=== PATIENT | female | born 1955 | race Caucasian/White ===

== ENCOUNTER 2016-11-06 09:01 | Day surgery (SDC) | payer OTHER ==
[~2016-11-06] VITALS: Ht 157.5 cm; Wt 85.6 kg
[~2016-11-06 09:01] MED LIST: BEN25 PO; MED4DP PO
[2016-11-06 09:37] VITALS: Ht 157.5 cm; Wt 85.6 kg
[2016-11-06] MEDS ORDERED: PROPOFOL 20 ML ONE (09:42)
[2016-11-06] MEDS ORDERED: THYROID (09:45)
[2016-11-06] MEDS ORDERED: OMEP40CA6 PO (09:45)
[2016-11-06 09:49] VITALS: BP 165/96; PULSE 69; RESP 14
--- NOTE | 2016-11-07 00:40 | GILP ---
DATE OF PROCEDURE: NAME OF PROCEDURE: Colonoscopy. SURGEON: Anabel Moralse MD PREOPERATIVE DIAGNOSIS: Screening colonoscopy. POSTOPERATIVE DIAGNOSES: 1. Colonoscopy all the way to the cecum. 2. Poor prep making the exam suboptimal. 3. Diverticulosis of the colon. 4. Internal hemorrhoids. INDICATION FOR THE PROCEDURE: Ms. Montserrat Randhawa is a 61-year-old female patient who was scheduled fo r screening colonoscopy. The procedure and possible complications are well explained to the patient. She understood and cons ented to the procedure. DESCRIPTION OF PROCEDURE: Under the influence of anesthesia, the colonoscope was carefully introduc ed in the rectum and, under direct vision, it was advanced all the way to the cecum. FINDINGS: The patient had poor prep making the exam suboptimal. She was noted to have diverticulos is of the colon. She also had internal hemorrhoids. No gross neoplasm was identified. She tolerated the procedure very well and there was no complication from the procedure. At the end of the procedure, she was awake with stable vital signs and she was discharged home to the care of h er family. IMPRESSION: 1. Colonoscopy all the way to the cecum. 2. Poor prep making the exam suboptimal. 3. Diverticulosis of the colon. 4. Internal hemorrhoids. PLAN: 1. High fiber diet. 2. The patient will need next screening colonoscopy in 3 years because of poor prep and suboptimal nature of the examination. Dictated By: ANABEL CASTRO/ALTA Conf#: [id number] DID#: [id number] CC: ANABEL MORALES MD;*EndCC*
== END 2016-11-06 10:39 | disposition home or self-care (01) ==
LOC: GIL 09:01
PROVIDERS: ATTEND Internal Medicine Gastroenterology
DX: Z12.11 Encounter for screening for malignant neoplasm of colon (principal); K57.90 Diverticulosis of intestine, part unspecified, without perforation or abscess without bleeding; K64.8 Other hemorrhoids; E03.9 Hypothyroidism, unspecified; E66.9 Obesity, unspecified; Z68.34 Body mass index [BMI] 34.0-34.9, adult
CPT/HCPCS: 45378; Z7610